=== PATIENT | female | born 1995 | race Caucasian/White ===

== ENCOUNTER 2018-01-18 11:24 | Outpatient (CLI) | END 2018-01-18 13:35 | disposition home or self-care (01) ==

== ENCOUNTER 2018-02-01 16:20 | Inpatient (IN) | END 2018-02-04 15:54 | disposition home or self-care (01) | DRG 768 ==

== ENCOUNTER 2018-11-02 11:50 | Emergency (ER) | payer MEDICAID ==
[~2018-11-02] VITALS: Wt 74.3 kg
[~2018-11-02 11:50] MED LIST: DOXY100T34 PO; IBUP-1542 PO; PRED20TA PO; PREN-93 PO; TRIA15CR55 TOP
[2018-11-02 11:59] VITALS: BP 119/70; PULSE 100; RESP 18
== END 2018-11-02 12:34 | disposition home or self-care (01) ==
LOC: E/R 11:50
DX: M79.644 Pain in right finger(s) (principal)
CPT/HCPCS: 99283